=== PATIENT | female | born 1940 | race Hispanic/Latino ===

== ENCOUNTER 2017-01-27 15:25 | Emergency (ER) | payer MEDICARE ==
[2017-01-27] MEDS ORDERED: HYDROcodone/Acetaminophen 10/325 mg Tablet ONE (16:54)
[2017-01-27] MEDS ORDERED: Phenergan/Codeine 10-6.25mg/5ml UDCUP ONE (16:54)
[2017-01-27] MEDS ORDERED: Ondansetron ODT 4 MG TAB ONE (16:55)
[2017-01-27] MEDS ORDERED: Azithromycin 250 MG TAB ONE (16:55)
[2017-01-27] MEDS ORDERED: Naproxen 500 MG TAB ONE (16:55)
== END 2017-01-27 17:05 | disposition home or self-care (01) ==
LOC: MADERS 15:25
DX: J20.9 Acute bronchitis, unspecified (principal); K21.9 Gastro-esophageal reflux disease without esophagitis; I10 Essential (primary) hypertension; Z79.899 Other long term (current) drug therapy
CPT/HCPCS: 99283; Q0162

== ENCOUNTER 2017-05-06 19:17 | Emergency (ER) | payer MEDICARE ==
[~2017-05-06 19:17] MED LIST: Sodium Chloride 0.9% 1,000 ML BAG ONE
[2017-05-06] MEDS ORDERED: Acetaminophen 500 MG TAB ONE (19:58)
[2017-05-06] MEDS ORDERED: Ondansetron HCl/PF 4 MG/2 ML Vial ONE (19:58)
[2017-05-06 20:08] LABS: INR-International Normal Ratio 0.9; PTT 29.6 SEC (22.9-36.1); Prothrombin Time 12.6 SEC (12.0-14.7)
[2017-05-06 20:09] LABS: #Basophils 0.1 thou/uL (0.0-0.2); #Eosinphils 0.3 thou/uL (0.0-0.7); #Lymphocytes 3.4 thou/uL (1.20-3.40); #Monocytes 0.8 thou/uL (0.11-0.59); #Neutrophils 4.8 thou/uL (1.40-6.50); %Basophils 1.3 % (0.0-1.0); %Eosinophils 3.1 % (0.0-10.0); %Lymphocytes 36.5 % (21.0-51.0); %Neutrophils 51.1 % (42.0-75.0); Hemoglobin 13.3 g/dL (12.0-16.0); Mean Corpuscular HGB CONC 33.8 g/dL (32.0-36.0); Mean Corpuscular Hemoglobin 31.3 pg (27.0-31.0); Mean Corpuscular Volume 92.5 fl (81.0-99.0); Platelet Count 328 thou/uL (130-400); RBC Distribution Width 12.7 % (11.5-14.5); Red Blood Cell (RBC) Count 4.24 mill/uL (4.20-5.40); White Blood Cell (WBC) Count 9.3 thou/uL (4.8-10.8)
[2017-05-06 20:21] LABS: CKMB 1.3 ng/mL (0-6.6); Troponin I 0.019 ng/mL (< 0.028)
[2017-05-06] MEDS ORDERED: Aspirin 325 MG TAB ONE (20:24)
[2017-05-06 20:36] LABS: ALT (SGPT) 14 U/L (8-55); AST (SGOT) 13 U/L (5-34); Albumin 3.9 g/dL (3.4-4.8); Alkaline Phosphatase 52 U/L (40-150); Anion Gap 14 mmol/L (10-20); BUN (Urea Nitrogen) 29 mg/dL (9.8-20.1); Bilirubin, Total 0.3 mg/dL (0.2-1.2); Calc. Creatinine Clearance 0 mL/min (70-130); Calcium 9.8 mg/dL (7.8-10.44); Carbon Dioxide 29 mmol/L (23-31); Chloride 104 mmol/L (98-107); Estimated GFR-MDRD 40; Globulin 2.7 g/dL (2.4-3.5); Glucose 112 mg/dL (83-110); Potassium 3.7 mmol/L (3.5-5.1); Protein, Total 6.6 g/dL (6.0-8.3); Sodium 143 mmol/L (136-145)
--- NOTE | 2017-05-06 21:46 | RAD ---
PORTABLE CHEST ONE VIEW 05/06/17 at 7:55 p.m. HISTORY: Altered mental status. FINDINGS: Comparison made with exam of 04/04/16. The heart size is normal. There is continued elevation of the right hemidiaphragm. No focal areas of consolidation, pneumothorax or pleural effusions are seen. IMPRESSION: No acute process. POS: [facility]
--- NOTE | 2017-05-06 22:07 | CT ---
CT BRAIN WITHOUT CONTRAST 05/06/17 HISTORY: Altered mental status, blurred vision, headache, stroke protocol. FINDINGS: Comparison made with exam of 11/18/13. Changes of cortical atrophy and chronic small vessel ischemic disease is again seen. The ventricular size is stable and the basilar cisterns patent. No evidence of acute infarct hemorrhage, midline sh ift, or abnormal extra-axial fluid collections are seen. The bony calvarium is intact. The visualize d paranasal sinuses and mastoid air cells are well aerated. IMPRESSION: No CT evidence of acute intracranial process. Findings are discussed over the telephone with ER physician, Dr. Ramiro Land at 8:14 p.m. Code CR POS: [facility]
== END 2017-05-06 20:47 | disposition short-term general hospital (02) ==
LOC: MADERS 19:17
DX: I63.9 Cerebral infarction, unspecified (principal); K21.9 Gastro-esophageal reflux disease without esophagitis; I10 Essential (primary) hypertension; Z79.899 Other long term (current) drug therapy
CPT/HCPCS: 36415; 36416; 70450; 71010; 80053; 82553; 84484; 85025; 85610; 85730; 93005; 96374; J2405; J7050

== ENCOUNTER 2017-09-10 15:18 | Outpatient (CLI) | payer MEDICARE ==
--- NOTE | 2017-09-10 17:40 | RAD ---
FIVE VIEWS OF THE LUMBAR SPINE: 09/10/17 INDICATION: Chronic SI joint pain. FINDINGS: There is moderate left and mild right SI joint osteoarthrosis. There is slight degenerative levoscoli osis of the lumbar spine. There is advanced disc degenerative disease at L3-4 through L4-5. There is prominent multilevel facet osteoarthritic change. Spinal alignment on the lateral projection appears within normal limits. IMPRESSION: 1. Moderate to prominent multilevel spondylosis of the lumbar spine. 2. 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 POS: [facility]
--- NOTE | 2017-09-10 18:22 | RAD ---
RADIOGRAPH PELVIS AND BILATERAL HIPS TWO VIEWS: 09/10/17 Attention Linnea in billing department: No, the title is not an error. Yes, this is indeed a pelvis a nd bilateral hips 2 view study. HISTORY: 77-year-old female with chronic left sacroiliac joint pain. TECHNIQUE: AP and frogleg views of the entire pelvis. FINDINGS: There is high grade disc space narrowing (worse on the left side than right) at L4-5 of the lumbar sp ine, incompletely imaged. Bilateral SI joint spaces are grossly maintained. There are small, subtle, focal sclerotic regions in certain areas around the left SI joint. The right SI joint appears relativ samm normal. The pelvic ring appears to be grossly intact. Femoral head contours are normal. Bilateral hip joint spaces are maintained. No major subcapital osteophytes or acetabular osteophytes. No fract ure or dislocation. Diffuse osteopenia. IMPRESSION: 1. Lumbar spondylosis, including degenerative disc disease at L4-5, incompletely imaged. 2. Mild degenerative changes at left SI joint. 3. Essentially normal bilateral hips. POS: [facility]
== END 2017-09-10 15:19 | disposition home or self-care (01) ==
LOC: MADRAD 15:18
PROVIDERS: ATTEND General Practice
DX: M53.3 Sacrococcygeal disorders, not elsewhere classified (principal); M47.816 Spondylosis without myelopathy or radiculopathy, lumbar region; M51.36 Other intervertebral disc degeneration, lumbar region
CPT/HCPCS: 72110; 72170

== ENCOUNTER 2019-05-27 15:23 | Emergency (ER) | payer MEDICARE ==
[~2019-05-27 15:23] MED LIST changes: +Iopamidol 370 76% 125 ML VIAL FS ONE; -Sodium Chloride 0.9% 1,000 ML BAG ONE
[2019-05-27 15:52] LABS: INR-International Normal Ratio 0.9; PTT 27.5 SEC (22.9-36.1); Prothrombin Time 12.5 SEC (12.0-14.7)
--- NOTE | 2019-05-27 15:59 | CT ---
CT BRAIN NONCONTRAST: DATE: 05/27/2019 HISTORY: 79-year-old female with acute expressive aphasia. Dr. Hong verbally gave this stroke alert protocol report by telephone to Dr. Barrientos at 3:53 PM on 019. COMPARISON: 05/06/2017 FINDINGS: There is no evidence of acute intra-axial or extra-axial hemorrhage. There is no midline shift or any other mass effect. There is no extra-axial fluid collection. There is no evidence of obstructive hydrocephalus. Calvarium is intact. There is diffuse brain parenchymal volume loss. There are low att enuation areas in the white matter. These are nonspecific, but in a patient of this age, they are probably chronic ischemic white matter changes due to microvascular atherosclerosis. There is a small focal old infarction in the left occipital lobe which was not present on the previous CT. IMPRESSION: 1) No acute intracranial findings. 2) involutional changes and chronic ischemic white matter changes. 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
[2019-05-27 16:03] LABS: Band 9 % (5-11); Hemoglobin 14.1 g/dL (12.0-16.0); Lymphocytes 7 % (21-51); MDiff Complete? YES; Mean Corpuscular HGB CONC 33.8 g/dL (32.0-36.0); Mean Corpuscular Hemoglobin 30.1 pg (27.0-31.0); Mean Corpuscular Volume 89.1 fL (78.0-98.0); Mean Platelet Volume 8.3 fL (7.4-10.4); Monocytes 5 % (0-10); Neutrophil 79 % (42-75); Platelet Count 291 thou/uL (130-400); Platelet Morphology Comment Appears Adequate; RBC Distribution Width 12.5 % (11.5-14.5); Red Blood Cell (RBC) Count 4.68 mill/uL (4.20-5.40); White Blood Cell (WBC) Count 16.7 thou/uL (4.8-10.8)
[2019-05-27 16:05] LABS: CKMB 2.4 ng/mL (0-6.6); Troponin I Less than 0.010 ng/mL (< 0.028)
[2019-05-27 16:06] LABS: ALT (SGPT) 15 U/L (8-55); AST (SGOT) 20 U/L (5-34); Albumin 4.1 g/dL (3.4-4.8); Alkaline Phosphatase 44 U/L (40-150); Anion Gap 18 mmol/L (10-20); BUN (Urea Nitrogen) 28 mg/dL (9.8-20.1); Bilirubin, Total 0.8 mg/dL (0.2-1.2); Calc. Creatinine Clearance 0 mL/min (70-130); Carbon Dioxide 22 mmol/L (23-31); Chloride 106 mmol/L (98-107); Estimated GFR-MDRD 40; Globulin 2.4 g/dL (2.4-3.5); Glucose 113 mg/dL (83-110); Potassium 4.7 mmol/L (3.5-5.1); Protein, Total 6.5 g/dL (6.0-8.3); Sodium 141 mmol/L (136-145)
[2019-05-27 16:41] LABS: Bilirubin Small (Negative); Blood, Urine Negative (Negative); Clarity Slightly Cloudy (Clear); Glucose, Urine (Dipstick) Negative (Negative); Leukocyte Negative (Negative); Nitrite Negative (Negative); Protein, Urine (Dipstick) 100 mg/dL (Neg-Trace); Urobilinogen 0.2 mg/dL (Less than 2)
[2019-05-27 16:46] LABS: RBC/HPF 0-3 HPF (0-3)
[2019-05-27] MEDS ORDERED: Aspirin Chewable 81 MG TAB ONE (16:46)
[2019-05-27 16:47] LABS: Bacteria/HPF 1+ HPF (None Seen); Calcium Oxalate Crystals 2+ HPF (None Seen)
--- NOTE | 2019-05-27 16:54 | CT ---
CTA HEAD WITH CONTRAST CTA NECK WITH CONTRAST 05/27/19 INDICATION: Stroke alert, difficulty speaking. FINDINGS: There is motion artifact which distorts detail at the vasculature notably within the neck and does th us limit the evaluation. No obvious high grade stenosis of either subclavian artery. The aortic arch as visualized reveals calcification without significant stenosis. Origins of the great vessels emana te from the aortic arch reveal no high grade stenosis. There is focal plaque at the origin of the lef t subclavian artery. The origin of the right common carotid artery is obscured by motion limiting ass essment, otherwise, the common carotid artery reveals no high grade stenosis or occlusion. There is l imited assessment of the origin and proximal aspect of the left common carotid artery. Left common ca rotid artery otherwise demonstrates multifocal mild calcified and noncalcified plaque. There is plaqu e at each carotid bulb without high grade stenosis. No significant stenosis or occlusion of either ce rvical ICA. Relative codominance of the vertebral arteries which are grossly patent although portions are limited by motion. Bilateral LAURENCE and MCA are patent, with early branching of the left MCA. No s ignificant stenosis of either [employer]. Calcification is seen at each carotid terminus, moderate in degree . No obvious intracranial aneurysm is seen. Basilar artery is patent. Reference the separately dictated CT Head report for additional details. IMPRESSION: Limited by motion. Scattered vascular disease is present with areas of mild plaque formation and mild luminal narrowing, although no high grade stenosis or occlusion of the major arterial system of the head and neck. Notification of findings telephoned at 1625 hours, 05/27/19. Code CR POS: [facility]
== END 2019-05-27 16:57 | disposition short-term general hospital (02) ==
LOC: MADERS 15:23
DX: G45.9 Transient cerebral ischemic attack, unspecified (principal); D72.829 Elevated white blood cell count, unspecified; I10 Essential (primary) hypertension; K21.9 Gastro-esophageal reflux disease without esophagitis; G47.30 Sleep apnea, unspecified; Z79.899 Other long term (current) drug therapy
CPT/HCPCS: 36416; 70450; 70496; 70498; 80053; 81003; 81015; 82553; 83605; 84443; 84484; 85025; 85610; 85730; 93005; Q9967